=== PATIENT | male | born 1940 | race Hispanic/Latino ===

== ENCOUNTER 2017-12-21 07:16 | Day surgery (SDC) | payer MEDICARE ==
[2017-12-19 14:47] VITALS: BP 169/74
[2017-12-19 14:53] LABS: BASOPHILS % (AUTO) 0.4 % (0.0-5.0); EOSINOPHILS % (AUTO) 1.4 % (0.0-8.0); HEMATOCRIT 37.5 % (42-54); LYMPHOCYTES % (AUTO) 19.7 % (21.0-51.0); MEAN CORPUSCULAR HEMOGLOBIN 33.8 pg (27.0-33.0); MEAN CORPUSCULAR HGB CONC 34.6 g/dL (32.0-36.0); MEAN CORPUSCULAR VOLUME 97.9 fL (79-99); MONOCYTES % (AUTO) 6.2 % (3.0-13.0); NEUTROPHILS % (AUTO) 72.3 % (40.0-77.0); PLATELET COUNT (AUTO) 163 K/uL (130-400); RED BLOOD CELL COUNT(AUTO) 3.83 MIL/uL (4.50-6.20); RED CELL DISTRIBUTION WIDTH 13.5 % (11.0-15.5); WHITE BLOOD COUNT (AUTO) 8.6 K/uL (4.8-10.8)
[2017-12-19 15:05] LABS: CREATININE 1.6 mg/dL (0.5-1.5); POTASSIUM 4.1 mmol/L (3.5-5.1)
[2017-12-20 11:40] VITALS: BP 146/87
[~2017-12-21] VITALS: Ht 162.6 cm; Wt 84.3 kg
[2017-12-21] VITALS (13 sets, daily range): BP systolic 117–149; BP diastolic 59–81
[2017-12-21] MEDS: CEFTRIAXONE SODIUM 1 GM IVP SCH ×2 (06:00→09:48)
[~2017-12-21 07:16] MED LIST: ATOR10 PO; LOSA100T20 PO; TAMS0.4C32 PO
[2017-12-21] MEDS ORDERED: LACTATED RINGERS 1000ML 1,000 ML IV ONE (08:10)
[2017-12-21] MEDS ORDERED: PROPOFOL 10 MG/ML 20ML VIAL IV ONE (09:23)
[2017-12-21] MEDS ORDERED: FENTANYL CITRATE PF 50 MCG/1 ML 2ML VIAL ONE (09:23)
[2017-12-21] MEDS ORDERED: LIDOCAINE PF 2% 5ML ABBOJECT ONE (09:23)
[2017-12-21] MEDS ORDERED: EPHEDRINE SULFATE 50 MG/ML AMPULE ONE (09:50)
[2017-12-21] MEDS ORDERED: OPIUM/BELLADONNA ALKALOIDS 1 EACH SUPP.RECT RC ONE (11:17)
[2017-12-21] MEDS ORDERED: PHENAZOPYRIDINE HCL 200 MG TABLET ONE (11:36)
== END 2017-12-21 12:25 | disposition home or self-care (01) ==
LOC: DAH 07:16
PROVIDERS: ATTEND Urology
DX: N40.1 Benign prostatic hyperplasia with lower urinary tract symptoms (principal); R35.1 Nocturia; Z79.899 Other long term (current) drug therapy; Z98.890 Other specified postprocedural states; Z80.42 Family history of malignant neoplasm of prostate; E66.01 Morbid (severe) obesity due to excess calories; Z96.659 Presence of unspecified artificial knee joint; I12.9 Hypertensive chronic kidney disease with stage 1 through stage 4 chronic kidney disease, or unspecified chronic kidney disease; N18.9 Chronic kidney disease, unspecified
CPT/HCPCS: 36415; 52648; 80048; 85025; 93005; A4218; A4340; A4354; A4358; A4510; A4600; A5113; J0696 ×2; J2001; J2704; J3010; J3490; J7120 ×2

== ENCOUNTER 2021-03-08 11:07 | Emergency (ER) | payer MEDICARE ==
[~2021-03-08] VITALS: Ht 162.6 cm; Wt 88.9 kg
[~2021-03-08 11:07] MED LIST changes: -LOSA100T20 PO; +LOSA100T58 PO
[2021-03-08 11:18] VITALS: BP 143/75
[2021-03-08] MEDS ORDERED: PRED50TA2 PO (12:53)
== END 2021-03-08 13:08 | disposition home or self-care (01) ==
LOC: EDH 11:07
DX: G51.0 Bell's palsy (principal); I10 Essential (primary) hypertension; Z79.899 Other long term (current) drug therapy